=== PATIENT | male | born 1995 | race Caucasian/White ===

== ENCOUNTER 2018-02-25 13:00 | Emergency (ER) | payer OTHER ==
[2018-02-25 13:41] VITALS: BP 125/72
--- NOTE | 2018-02-25 14:13 | UC ---
Throat Pain/Nasal Jose HPI - HPI Summary HPI Summary: Pt c/o sudden on set of nausea and vomiting two nights ago, saturday02/23/18. Pt states that nausea and vomiting have resolved but now has sore throat that began saturday morning. Pt denies fever, chills. - History of Current Complaint Stated Complaint: FEVER/ST/VOMITING Time Seen by Provider: 02/25/18 13:23 Hx Obtained From: Patient Onset/Duration: Sudden Onset, Still Present Severity: Moderate Pain Intensity: 6 Cough: None Associated Signs & Symptoms: Positive: Dysphagia - Epiglottits Risk Factors Epiglottis Risk Factors: Sudden Onset - Allergies/Home Medications Allergies/Adverse Reactions: Allergies Allergy/AdvReac Type Severity Reaction Status Date / Time No Known Allergies Allergy Verified 02/25/18 13:41 Home Medications: Home Medications Ibuprofen TAB* [Motrin TAB* 600 MG] 600 mg PO Q8H PRN 02/25/18 [History Confirmed 02/25/18] Phenylephrine/Dm/Acetaminop/GG [Vicks Dayquil Severe Cold-Flu] 1 liq PO ONCE PRN 02/25/18 [History Confirmed 02/25/18] PMH/Surg Hx/FS Hx/Imm Hx Previously Healthy: Yes Other History Of: Negative For: HIV, Hepatitis B, Hepatitis C - Surgical History Surgical History: Yes Surgery Procedure, Year, and Place: [facility] 04/2017 - Family History Known Family History: Positive: Cardiac Disease - Social History Occupation: Student Lives: Dormitory/Roommates Alcohol Use: Weekly Alcohol Amount: 15 Substance Use Type: Marijuana Substance Use Comment - Amount & Last Used: december Smoking Status (MU): Never Smoked Tobacco Have You Smoked in the Last Year: Yes - yes, marijuana Review of Systems Constitutional: Negative Skin: Negative Eyes: Negative ENT: Sore Throat Respiratory: Negative Cardiovascular: Negative Gastrointestinal: Negative Genitourinary: Negative Motor: Negative Neurovascular: Negative Musculoskeletal: Negative Neurological: Negative Psychological: Negative Is Patient Immunocompromised?: No All Other Systems Reviewed And Are Negative: Yes Physical Exam Triage Information Reviewed: Yes Appearance: Well-Appearing Vital Signs: Initial Vital Signs Temp 98.6 F 02/25/18 13:31 Pulse 51 02/25/18 13:31 Resp 20 02/25/18 13:31 BP 125/72 02/25/18 13:31 Pulse Ox 98 02/25/18 13:31 Vital Signs Reviewed: Yes Eye Exam: Normal ENT Exam: Other ENT: Positive: Pharyngeal erythema, Tonsillar swelling Dental Exam: Normal Neck exam: Normal Respiratory Exam: Normal Cardiovascular Exam: Normal Abdominal Exam: Normal Musculoskeletal Exam: Normal Neurological Exam: Normal Psychological Exam: Normal Skin Exam: Normal Diagnostics - Laboratory Diagnostic Studies Completed/Ordered: rapid strep: positive Throat Pain/Nasal Course/Dx - Differential Dx/Diagnosis Differential Diagnosis/HQI/PQRI: Pharyngitis, Tonsillitis Provider Diagnoses: strep throat Discharge - Sign-Out/Discharge Documenting (check all that apply): Patient Departure All imaging exams completed and their final reports reviewed: No Studies - Discharge Plan Condition: Stable Disposition: HOME Prescriptions: Penicillin VK 500 MG TAB(NF) [Penicillin VK 500 mg Tab] 500 mg PO Q8H #30 tab Patient Education Materials: Strep Throat (ED) Forms: *School Release Referrals: [facility] [Outside] - If Needed No Primary Care Phys,NOPCP [Primary Care Provider] - - Billing Disposition and Condition Condition: STABLE Disposition: Home
== END 2018-02-25 14:23 | disposition home or self-care (01) ==
LOC: UCCORT 13:00
DX: J02.0 Streptococcal pharyngitis (principal)
CPT/HCPCS: 87651; 99212; G0463